=== PATIENT | male | born 1965 | race Caucasian/White ===

== ENCOUNTER 2024-04-18 09:40 | Emergency (ER) | payer BC ==
[2024-04-18 10:33] LABS: Eosinophils 2 % (0-10); Hematocrit 49.7 % (42.0-52.0); Hemoglobin 15.8 g/dL (14.0-18.0); Lymphocytes 23 % (21-51); MDiff Complete? YES; Mean Corpuscular HGB CONC 31.8 g/dL (32.0-36.0); Mean Corpuscular Hemoglobin 29.3 pg (27.0-31.0); Mean Platelet Volume 7.2 fL (7.4-10.4); Monocytes 9 % (0-10); Neutrophil 61 % (42-75); Platelet Adequacy Comment Appears Adequate; Platelet Count 260 10x3/uL (130-400); RBC Distribution Width 12.4 % (11.5-14.5); White Blood Cell (WBC) Count 6.6 10x3/uL (4.8-10.8)
[2024-04-18 10:34] LABS: ALT (SGPT) 20 U/L (8-55); AST (SGOT) 17 U/L (5-34); Albumin 3.8 g/dL (3.5-5.0); Alkaline Phosphatase 88 U/L (40-110); Anion Gap 16 mmol/L (10-20); BUN (Urea Nitrogen) 14 mg/dL (8.4-25.7); Bilirubin, Total 0.5 mg/dL (0.2-1.2); Calc. Creatinine Clearance 0 mL/min (70-130); Calcium 9.5 mg/dL (7.8-10.44); Carbon Dioxide 22 mmol/L (22-29); Chloride 106 mmol/L (98-107); Estimated GFR 77; Globulin 3.6 g/dL (2.4-3.5); Glucose 192 mg/dL (70-105); Potassium 4.6 mmol/L (3.5-5.1); Protein, Total 7.4 g/dL (6.0-8.3); Sodium 139 mmol/L (136-145)
[2024-04-18 10:35] LABS: Troponin I Less than 0.010 ng/mL (< 0.028)
[2024-04-18 13:04] LABS: Troponin I Less than 0.010 ng/mL (< 0.028)
== END 2024-04-18 13:20 | disposition home or self-care (01) ==
LOC: MADERS 09:40
DX: R07.89 Other chest pain (principal); R06.00 Dyspnea, unspecified; E11.9 Type 2 diabetes mellitus without complications; Z79.899 Other long term (current) drug therapy
CPT/HCPCS: 71046; 80053; 83880; 84484; 85025; 85379; 93005